=== PATIENT | female | born 1990 | race Caucasian/White ===

== ENCOUNTER 2019-12-19 10:33 | Emergency (ER) | payer BC, SELFPAY ==
--- NOTE | ~2019-12-19 | CT_ITS ---
EXAMINATION: CTA brain carotid EXAM DATE: 12/19/2019 11:57 INDICATION: Pain behind left eye since midnight. Dizziness. Nausea. TECHNIQUE: Noncontrast head CT. Spiral CTA of the carotid arteries was performed with intravenous i njection 100 cc of Omnipaque 350. Axial, coronal, sagittal reformatted images reviewed. Additional r eformatted images created on dedicated 3-D workstation. NASCET comparable standard used to assess th e degree of arterial stenosis. Spiral CT angiogram cerebral arteries performed with the same intrave nous injection of contrast. Source images of the brain CTA transferred to dedicated workstation for 3 -D rotational image creation. Coronal, sagittal maximum intensity pixel images also reviewed. The d ose-length product (DLP) for this examination was 1775.62 mGy-cm. The exposure was tailored accordi ng to patient size, and iterative reconstruction (ASIR) was used as additional dose reduction techniq ue. Correlation is made to head CT 01/30/2008. FINDINGS: There is 0% carotid stenosis bilaterally. The vertebral arteries are codominant. There is no carotid or vertebral basilar arterial dissection or fibromuscular dysplasia. There are no cerebral artery aneurysms. There is symmetric cerebral artery arborization. The sagittal, transverse and sigm oid sinuses enhance normally, no venous sinus thrombosis. Internal cerebral veins also enhance normal ly. There is no acute intraparenchymal hemorrhage. No evidence of intraparenchymal brain mass lesion. N o evidence of acute infarction. There is no mass effect or midline shift. There is no obstructive hyd rocephalus suspected. There are no extra-axial collections. There are no calvarial acute fractures. Moderate amount of frothy appearing material within the left maxillary sinus, otherwise mild mucoperi osteal disease within the ethmoid, right frontal, right sphenoid, right maxillary sinus. Mastoid air cells are well aerated. Lung apices are clear. IMPRESSION: 1. No cervical arterial dissection or cerebral artery aneurysm. No carotid stenosis. 2. Moderate amount of left maxillary sinus frothy appearing material. Otherwise mild sinus mucoperio steal thickening. Reviewed, dictated and finalized at location B. [employer] IMPRESSION: 1. No cervical arterial dissection or cerebral artery aneurysm. No carotid concepcion nosis. 2. Moderate amount of left maxillary sinus frothy appearing material. Otherwis e mild sinus mucoperiosteal thickening.
--- NOTE | 2019-12-19 10:43 | ED.ABDPAIN ---
HPI - Abdominal Pain General Chief Complaint: Headache Stated Complaint: alarcon/nausea/abd pain Time Seen by Provider: 12/19/19 10:35 Source: patient Mode of arrival: ambulatory Limitations: no limitations History of Present Illness HPI narrative: Patient is a 29-year-old female who presents to emergency department for evaluation of left postauricular headache that began in the early hours of the night woke her from her sleep noting that she has also had some GI upset since with some nausea. Patient has history of headaches but states this is different than normal. Mother notes history of aneurysms in the family and has concerned. Patient notes she has also had urinary frequency and urgency today with cramping throughout the abdomen denying any vomiting diarrhea or URI symptoms. Patient took some [id number] medication early hours of the morning with no improvement. Patient presents with normal gait and no distress Related Data Allergies Allergy/AdvReac Type Severity Reaction Status Date / Time No Known Allergies Allergy Verified 12/19/19 11:09 Review of Systems Review of Systems: Narrative: CONSTITUTIONAL: Denies fever, chills, or sweats. EYES: Denies visual changes, redness, or discharge. ENT: Denies rhinorrhea, congestion, sore throat, or otalgia. CARDIOVASCULAR: Denies chest pain, palpitations, or edema. RESPIRATORY: Denies cough or dyspnea. GASTROINTESTINAL: Denies diarrhea. GENITOURINARY: Denies dysuria or hematuria. Positive for burning with urination SKIN: Denies rash or itching. MUSCULOSKELETAL: Denies back pain, joint pain, or myalgia. NEUROLOGIC: Denies numbness, or weakness. PMFSH Social History Social History Gender identity (if verbalized by the patient): Female Exam Narrative: Exam Narrative: GENERAL: Well-appearing, well-nourished, and in no acute distress. HEAD: Normocephalic, atraumatic. EYES: PERRLA and EOMI. ENT: Nares clear, no rhinorrhea or epistaxis. Mucous membranes moist. Oropharynx without tonsillar hypertrophy exudate or other lesions. NECK: Supple. No adenopathy or masses. CHEST: Clear to auscultation. No respiratory distress. No wheezes rales or rhonchi HEART: Regular rate and rhythm. No murmur heard. Normal peripheral pulses. ABDOMEN: Soft, nontender, nondistended. EXTREMITIES: Normal range of motion. No edema. SKIN: Warm, dry, no rash. NEURO: No focal deficits. Alert and oriented x3. Cranial nerves II through XII grossly intact. Normal speech and gait PSYCH: Normal mood and affect. Course Course Emergency Course: Patient in the room afebrile nontoxic-appearing no distress felt appropriate for outpatient reevaluation agreeing to follow-up as directed Vital Signs Vital signs: Vital Signs Temperature 98.6 F 12/19/19 10:45 Pulse Rate 84 12/19/19 10:45 Respiratory Rate 16 12/19/19 10:45 Blood Pressure 154/96 H 12/19/19 10:45 Pulse Oximetry 100 12/19/19 10:45 Temperature 98.6 F 12/19/19 10:45 Pulse Rate 84 12/19/19 10:45 Respiratory Rate 16 12/19/19 10:45 Blood Pressure 154/96 H 12/19/19 10:45 Pulse Oximetry 100 12/19/19 10:45 MDM - Abdominal Pain MDM Narrative Medical decision making narrative: Patients headache was not sudden or maximal in onset. There are o focal neurological deficits on exam. Subarachnoid hemorrhage is felt to be unlikey at this time. There is no history of fever, and neck is supple without meningismus, making meningitis unlikely. No traumatic history or signs of trauma on exam. No risk factors for CVA, risk factors reviewed. NO ocular signs on exam and in history to suggest acute glaucoma. Patients headache is felt to be a reasonable candidate for outpatient evaluation Lab Data Result diagrams: 12/19/19 10:50 12/19/19 10:50 Labs: Lab Results 12/19/19 12/19/19 12/19/19 Range/Units 10:50 10:50 11:34 WBC 6.9 (4.5-10.0) K/mm
[2019-12-19 10:45] VITALS: BP 154/96; PULSE 84; RESP 16; TEMP 37; O2SAT 100
[2019-12-19 11:01] LABS: Basophils Absolute Auto 0.1 K/mm3 (0.0-0.1); Basophils Percent Auto 0.7 % (0.2-1.2); Eosinophils Absolute Auto 0.2 K/mm3 (0-0.3); Hemoglobin 15.3 g/dL (12.0-15.0); Immature Granulocyte Absolute 0.02 K/mm3 (0.00-0.031); Immature Granulocyte Percent A 0.3 % (0-0.5); Lymphocytes Percent Auto 23.1 % (18.3-44.2); Mean Corpuscular HGB Conc 33.3 g/dl (32-36); Mean Corpuscular Volume 87.1 fl (80-100); Mean Platelet Volume 9.7 fl (7.4-10.4); Monocytes Absolute Auto 0.3 K/mm3 (0.1-0.6); Monocytes Percent Auto 4.2 % (2.6-8.5); Neutrophils Absolute Auto 4.8 K/mm3 (1.3-6.7); Neutrophils Percent Auto 68.7 % (45.5-73.1); Platelet Count Result 351 k/mm3 (150-375); Red Blood Count 5.28 M/mm3 (4.2-5.4); Red Cell Distribution Width 11.9 % (11.5-14.5); White Blood Count 6.9 K/mm3 (4.5-10.0)
[2019-12-19 11:15] LABS: Alanine Aminotransferase 19 U/L (4-35); Albumin Level 4.6 g/dL (3.5-5.1); Alkaline Phosphatase 106 U/L (38-126); Aspartate Amino Transferase 21 U/L (14-36); Bilirubin,Total 0.5 mg/dL (0.2-1.3); Blood Urea Nitrogen 12 mg/dL (7-17); Calcium 9.3 mg/dL (8.4-10.2); Carbon Dioxide 27 mmol/L (22-30); Chloride 102 mmol/L (98-107); Estimated CRCL calculation 126 ml/min; Estimated Glomerular Filt Rate > 60; Glucose 92 mg/dL (65-105); Lipase 74 U/L (23-300); Potassium 4.1 mmol/L (3.4-5.0); Sodium 140 mmol/L (137-145)
[2019-12-19] MEDS: FAMOTIDINE 20 MG/2 ML VIAL IV PUSH (11:31)
[2019-12-19] MEDS: SODIUM CHLORIDE 0.9% IV 1,000 ML 999 ML IV CONT (11:31)
[2019-12-19] MEDS: ONDANSETRON INJ 4 MG/2 ML VIAL IV PUSH (11:31)
[2019-12-19 11:45] LABS: Add Urine Microscopic? YES; Appearance Urine Clear (Clear); Bilirubin Urine Negative (Negative); Blood Urine 2+ (Negative); Color Urine Straw (Yellow); Glucose Urine UA Negative (Negative); Ketones Urine Negative (Negative); Leukocyte Esterase Ur Trace LEU/UL (Negative); Mucus Urine Rare /lpf; Nitrate Urine Negative (Negative); Protein Urine Negative (Negative); RBC Urine 0-2 /hpf (0-2); Squamous Epithelial Cell Urine Few /hpf (Few); Transitional Epi Cells Urine Rare /hpf (None Seen); Urobilinogen Urine Negative mg/dL (<2.0)
[2019-12-19 12:40] VITALS: BP 101/78; PULSE 73; RESP 18; O2SAT 100
== END 2019-12-19 12:42 | disposition home or self-care (01) ==
PROVIDERS: Emergency Medicine Emergency Medical Services; Emergency Provider Emergency Medicine; PCP Chiropractor
DX: R51 Headache (principal)
CPT/HCPCS: 36415; 70496; 70498; 80053; 81001; 81025; 83690; 85025; 96365; 96375; 99284; J0131; J2405; J7030; Q9967